=== PATIENT | male | born 1990 | race African-American/Black ===

== ENCOUNTER 2017-11-28 00:56 | Emergency (ER) | payer SELFPAY ==
[~2017-11-28] VITALS: Ht 167.6 cm; Wt 73.0 kg
[2017-11-28 07:02] VITALS: BP 121/72
== END 2017-11-28 07:21 | disposition home or self-care (01) ==
LOC: ER 00:56
DX: B35.1 Tinea unguium (principal); B35.3 Tinea pedis; F12.90 Cannabis use, unspecified, uncomplicated
CPT/HCPCS: 99283; Z7610

== ENCOUNTER 2018-01-30 01:28 | Emergency (ER) | payer MEDICAID ==
[~2018-01-30] VITALS: Ht 167.6 cm; Wt 75.0 kg
[2018-01-30 02:20] VITALS: BP 106/41
== END 2018-01-30 07:30 | disposition left against medical advice (07) ==
LOC: ER 01:28
DX: R09.89 Other specified symptoms and signs involving the circulatory and respiratory systems (principal); R51 Headache; Z53.21 Procedure and treatment not carried out due to patient leaving prior to being seen by health care provider

== ENCOUNTER 2018-02-22 00:52 | Emergency (ER) | payer MEDICAID ==
[~2018-02-22] VITALS: Ht 167.6 cm; Wt 75.0 kg
[2018-02-22 00:59] VITALS: BP 121/64
== END 2018-02-22 07:12 | disposition left against medical advice (07) ==
LOC: ER 03:25
DX: R50.9 Fever, unspecified (principal); R05 Cough; R11.10 Vomiting, unspecified; Z53.21 Procedure and treatment not carried out due to patient leaving prior to being seen by health care provider

== ENCOUNTER 2023-03-11 02:54 | Emergency (ER) | payer MEDICAID ==
[~2023-03-11] VITALS: Ht 167.6 cm; Wt 71.3 kg
[2023-03-11 03:00] VITALS: BP 142/83
[2023-03-11] MEDS ORDERED: ACETAMINOPHEN 500MG TABLET PO ONE (03:30)
[2023-03-11] MEDS ORDERED: IBUP-2029 MT (05:32)
== END 2023-03-11 05:49 | disposition home or self-care (01) ==
LOC: ER 02:54
DX: S01.01XA Laceration without foreign body of scalp, initial encounter (principal); Y04.0XXA Assault by unarmed brawl or fight, initial encounter; Y93.89 Activity, other specified; Y92.89 Other specified places as the place of occurrence of the external cause; Y99.8 Other external cause status
CPT/HCPCS: 12001; 70450; 99284; Z7610

== ENCOUNTER 2023-04-03 09:58 | Emergency (ER) | payer MEDICAID ==
[~2023-04-03] VITALS: Ht 167.6 cm; Wt 77.0 kg
[~2023-04-03 09:58] MED LIST: IBUP-2029 MT
[2023-04-03 10:08] VITALS: BP 155/78
[2023-04-03] MEDS ORDERED: ACETAMINOPHEN 325MG TABLET PO ONE (10:30)
== END 2023-04-03 10:41 | disposition home or self-care (01) ==
LOC: ER 09:58
DX: S01.01XD Laceration without foreign body of scalp, subsequent encounter (principal); X58.XXXD Exposure to other specified factors, subsequent encounter
CPT/HCPCS: 99281